=== PATIENT | male | born 1980 | race African-American/Black ===

== ENCOUNTER 2021-05-08 10:52 | Emergency (ER) | payer BC ==
[2021-05-08] MEDS ORDERED: SODIUM CHLORIDE 0.9% 1,000 ML IV STA (11:25)
[2021-05-08] MEDS ORDERED: DROPERIDOL 5 MG/2 ML VIAL IVP STA (11:25)
[2021-05-08] MEDS ORDERED: KETOROLAC 30 MG/ML VIAL IVP STA (11:25)
--- NOTE | 2021-05-08 11:30 | ED Physician Documentation ---
History of Present Illness - Stated complaint Stated Complaint: HIGH BLOOD SUGAR - Chief complaint Chief Complaint: Neuro - History obtained from History obtained from: Patient - History of Present Illness Timing: Today Pain level max: 10 Pain level now: 10 - Additonal information Additional information: Patient is a 40-year-old male who presents to the emergency department with ongoing headaches. History of similar. He was seen at the walk-in clinic yesterday, given Toradol and Benadryl. Headache did improve but returned today. Feels similar to prior cluster headaches. Nothing makes it better. Worse with light and sound. He was also recently diagnosed with diabetes and his blood sugar was noted to be around 300 today. He is currently on Metformin. No fevers. No chills. No abdominal pain. No nausea or vomiting. No trauma. Review of Systems Ten Systems: 10 systems reviewed and negative Constitutional: denies: Fever, Chills Respiratory: denies: Cough GI: denies: Nausea, Vomiting, Diarrhea Skin: denies: Rash Musculoskeletal: denies: Neck pain, Back pain Neurologic: denies: Headache PD PAST MEDICAL HISTORY - Past Medical History Past Medical History: Yes Neuro: Headaches - Present Medications Home Medications: Ambulatory Orders Medication Instructions Recorded Confirmed Butalb/Acetaminophen/Caffeine 1 cap PO Q6H PRN #10 cap 05/08/21 [Fioricet 50-300-40 mg Capsule] Metformin HCl [Metformin ER 1 tab PO DAILY 05/08/21 05/08/21 Osmotic] Metoprolol Succinate [Toprol Xl] 1 tab PO DAILY 05/08/21 05/08/21 Ondansetron Odt [Zofran] 4 mg TL Q6H PRN #10 tablet 05/08/21 SUMAtriptan [Imitrex] 1 tab PO PRN PRN 05/08/21 05/08/21 - Allergies Allergies/Adverse Reactions: Allergies Allergy/AdvReac Type Severity Reaction Status Date / Time No Known Drug Allergies Allergy Verified 05/08/21 11:13 - Social History Does the pt smoke?: No Smoking Status: Never smoker Does the pt drink ETOH?: Yes Does the pt have substance abuse?: No PD ED PE NORMAL - Vitals Vital signs reviewed: Yes - General General: Alert and oriented X 3, Other (wearing sunglasses, eyes closed) - HEENT HEENT: Atraumatic, PERRL, Moist mucous membranes - Neck Neck: Supple, no meningeal sign, No bony TTP - Cardiac Cardiac: RRR, Strong equal pulses - Respiratory Respiratory: No respiratory distress, Clear bilaterally - Abdomen Abdomen: Soft, Non tender, Non distended - Back Back: No spinal TTP - Derm Derm: Warm and dry - Extremities Extremities: No edema, No calf tenderness / cord - Neuro Neuro: Alert and oriented X 3, 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, No motor deficit, No sensory deficit, Normal speech Eye Opening: Spontaneous Motor: Obeys Commands Verbal: Oriented GCS Score: 15 - Psych Psych: Normal mood, Normal affect Results - Vitals Vitals: Vital Signs - 24 hr 05/08/21 05/08/21 05/08/21 11:03 11:50 12:19 Temperature 37.1 C Heart Rate 79 78 76 Respiratory 16 16 16 Rate Blood Pressure 158/97 H 131/84 H O2 Saturation 97 98 95 05/08/21 12:36 Temperature Heart Rate 72 Respiratory 16 Rate Blood Pressure 131/90 H O2 Saturation 96 Oxygen O2 Source Room air - Labs Labs: Laboratory Tests 05/08/21 05/08/21 05/08/21 11:24 11:37 11:37 WBC 10.4 RBC 5.71 Hgb 16.3 Hct 44.9 MCV 78.6 L MCH 28.5 MCHC 36.3 H RDW 12.0 Plt Count 264 MPV 10.4 Neut # (Auto) 6.5 Lymph # (Auto) 2.9 [place] # (Auto) 0.8 Eos # (Auto) 0.1 Baso # (Auto) 0.1 Absolute Nucleated RBC 0.00 Nucleated RBC % 0.0 VBG pH VBG pCO2 VBG pO2 VBG HCO3 VBG Total CO2 VBG O2 Saturation VBG Base Excess Sodium 133 L Potassium 3.9 Chloride 101 Carbon Dioxide 24 Anion Gap 8.0 BUN 16 Creatinine 0.9 Estimated GFR (MDRD) 113 Glucose 247 H POC Whole Bld Glucose 288 H Calcium 9.2 Total Bilirubin 1.2 H AST 18 ALT 23 Alkaline Phosphatase 69 Total Protein 7.1 Albumin 3.8 Globulin 3.3 Albumin/Globulin Ratio 1.2 Lipase 22 Serum Ketones NEGATIVE 05/08/21 12:24 WBC RBC Hgb Hct MCV MCH MCHC RDW Plt Count MPV Neut # (Auto) Lymph # (Auto) [place] # (Auto) Eos # (Auto) Baso # (Auto) Absolute Nucleated RBC Nucleated RBC % VBG pH 7.343 VBG pCO2 45.6 VBG pO2 33.7 VBG HCO3 24.2 VBG Total CO2 25.6 VBG O2 Saturation 65.5 VBG Base Excess -1.8 Sodium Potassium Chloride Carbon Dioxide Anion Gap BUN Creatinine Estimated GFR (MDRD) Glucose POC Whole Bld Glucose Calcium Total Bilirubin AST ALT Alkaline Phosphatase Total Protein Albumin Globulin Albumin/Globulin Ratio Lipase Serum Ketones PD MEDICAL DECISION MAKING - ED course Complexity details: reviewed results, re-evaluated patient, considered differential, d/w patient ED course: Patient feels better after Toradol, droperidol and Fioricet. Headache down to a 2 out of 10. Patient request to go home at this time. No significant lab abnormalities. Mild hyperglycemia. No evidence of DKA. No evidence of subarachnoid hemorrhage. No evidence of tumor or mass. This is typical for his cluster headaches. No acute neurological deficits. Patient counseled regarding signs and symptoms for which I believe and urgent re-evaluation would be necessary. Patient with good understanding of and agreement to plan and is comfortable going home at this time This document was made in part using voice recognition software. While efforts are made to proofread this document, sound alike and grammatical errors may occur. Departure - Departure Disposition: 01 Home, Self Care Clinical Impression: Cluster headache Qualifiers: Headache chronicity pattern: unspecified pattern Intractability: not intractable Qualified Code(s): G44.009 - Cluster headache syndrome, unspecified, not intractable Condition: Good Instructions: ED Cephalgia Unspecified Follow-Up: Jv Cartwright MD [Primary Care Provider] - Within 1 week Prescriptions: Butalb/Acetaminophen/Caffeine [Fioricet 50-300-40 mg Capsule] 1 cap PO Q6H PRN #10 cap PRN Reason: headache Ondansetron Odt [Zofran] 4 mg TL Q6H PRN #10 tablet PRN Reason: Nausea / Vomiting Comments: Follow up with your doctor for further care. We will trial you on Fioricet for her headaches. Return if you worsen. Discharge Date/Time: 05/08/21 13:36
[2021-05-08 11:50] LABS: BASOPHILS # (AUTO) 0.1 10^3/uL (0.0-0.1); BASOPHILS % (AUTO) 0.6 %; EOSINOPHILS # (AUTO) 0.1 10^3/uL (0.0-0.7); EOSINOPHILS % (AUTO) 0.8 %; HCT - HEMATOCRIT 44.9 % (42.0-52.0); HGB - HEMOGLOBIN 16.3 g/dL (14.0-18.0); LYMPHOCYTES # (AUTO) 2.9 10^3/uL (1.5-3.5); LYMPHOCYTES % (AUTO) 27.5 %; MEAN CORPUSCULAR HEMOGLOBIN 28.5 pg (27.0-31.0); MEAN CORPUSCULAR HGB CONC 36.3 g/dL (32.0-36.0); MEAN CORPUSCULAR VOLUME 78.6 fL (80.0-94.0); MEAN PLATELET VOLUME 10.4 fL (7.4-11.4); MONOCYTES # (AUTO) 0.8 10^3/uL (0.0-1.0); MONOCYTES % (AUTO) 7.9 %; NEUTROPHILS # (AUTO) 6.5 10^3/uL (1.5-6.6); NEUTROPHILS % (AUTO) 62.8 %; PLT - PLATELET COUNT 264 10^3/uL (130-450); RED BLOOD COUNT 5.71 10^6/uL (4.70-6.10); WHITE BLOOD COUNT 10.4 x10^3/uL (4.8-10.8)
[2021-05-08 12:00] LABS: KETONES, SERUM (ACETEST) NEGATIVE (NEGATIVE)
[2021-05-08 12:07] LABS: ALBUMIN 3.8 g/dL (3.2-5.5); ALBUMIN/GLOBULIN RATIO 1.2 (1.0-2.2); ALKALINE PHOSPHATASE 69 IU/L (42-121); ALT ALANINE AMINOTRANSFERASE 23 IU/L (10-60); AST ASPARTATE AMINOTRANSFERASE 18 IU/L (10-42); BILIRUBIN,TOTAL 1.2 mg/dL (0.2-1.0); BUN - BLOOD UREA NITROGEN 16 mg/dL (6-20); CALCIUM 9.2 mg/dL (8.5-10.3); CARBON DIOXIDE - CO2 24 mmol/L (21-32); CHLORIDE 101 mmol/L (101-111); CREATININE 0.9 mg/dL (0.6-1.2); GFR - MDRD 113 (>89); GLUCOSE 247 mg/dL (70-100); LIPASE 22 U/L (22-51); POTASSIUM 3.9 mmol/L (3.5-5.0); SODIUM 133 mmol/L (135-145); TOTAL PROTEIN 7.1 g/dL (6.7-8.2)
[2021-05-08] MEDS ORDERED: BUTALB/ACETAM/CAFF 50/325/40MG TABLET PO STA (12:31)
[2021-05-08 12:34] LABS: VBG PCO2 45.6 mmHg (41-51); VBG PH 7.343 (7.31-7.41); VBG PO2 33.7 mmHg (25-47)
[2021-05-08 12:35] LABS: VBG BASE EXCESS -1.8 mmol/L (-2 - +2); VBG HCO3 24.2 mmol/L (23-28); VBG OXYGEN SATURATION 65.5 % (60-80); VBG TOTAL CO2 25.6 mmol/L (24-29)
[2021-05-08 12:37] VITALS: BP 131/90
== END 2021-05-08 13:36 | disposition home or self-care (01) ==
LOC: ED 10:52
DX: G44.009 Cluster headache syndrome, unspecified, not intractable (principal); E11.65 Type 2 diabetes mellitus with hyperglycemia; Z79.84 Long term (current) use of oral hypoglycemic drugs
CPT/HCPCS: 36415; 80053; 82009; 82803; 83690; 85025; 96374; 96375; 99283; 99284; A9270